=== PATIENT | male | born 1980 | race Hispanic/Latino ===

== ENCOUNTER 2020-09-05 21:01 | Emergency (ER) | payer SELFPAY ==
[2020-09-05 21:23] LABS: #Basophils 0.1 thou/uL (0.0-0.2); #Eosinphils 0.4 thou/uL (0.0-0.7); #Lymphocytes 3.3 thou/uL (1.20-3.40); #Monocytes 0.7 thou/uL (0.11-0.59); #Neutrophils 3.3 thou/uL (1.40-6.50); %Eosinophils 4.7 % (0.0-10.0); %Lymphocytes 42.6 % (21.0-51.0); %Monocytes 9.5 % (0.0-10.0); %Neutrophils 42.3 % (42.0-75.0); Hemoglobin 16.2 g/dL (14.0-18.0); Mean Corpuscular HGB CONC 35.4 g/dL (32.0-36.0); Mean Corpuscular Hemoglobin 31.5 pg (27.0-31.0); Mean Platelet Volume 7.2 fL (7.4-10.4); Platelet Count 305 thou/uL (130-400); RBC Distribution Width 12.9 % (11.5-14.5); Red Blood Cell (RBC) Count 5.14 mill/uL (4.70-6.10); White Blood Cell (WBC) Count 7.8 thou/uL (4.8-10.8)
[2020-09-05 21:30] LABS: INR-International Normal Ratio 0.9; PTT 28.1 sec (22.9-36.1); Prothrombin Time 12.2 sec (12.0-14.7)
--- NOTE | 2020-09-05 21:31 | CT ---
Head CT without contrast 09/05/2020: Comparison: None HISTORY: Right facial weakness, headaches TECHNIQUE: Axial CT imaging at 5 mm intervals from vertex through skull base without contrast FINDINGS: The imaged paranasal sinuses and mastoid air cells are well-aerated. No displaced calvarial fracture. No intracranial hemorrhage, midline shift, mass effect, or ventricular enlargement. IMPRESSION: No acute findings. Isma Bruce made aware via phone at 9:29 PM 09/05/2020
[2020-09-05 21:47] LABS: ALT (SGPT) 33 U/L (8-55); AST (SGOT) 24 U/L (5-34); Albumin 4.3 g/dL (3.5-5.0); Alkaline Phosphatase 61 U/L (40-110); Anion Gap 14 mmol/L (10-20); BUN (Urea Nitrogen) 11 mg/dL (8.9-20.6); Bilirubin, Total 0.2 mg/dL (0.2-1.2); CK (CPK) 177 U/L (30-200); Calc. Creatinine Clearance 0 mL/min (70-130); Calcium 9.4 mg/dL (7.8-10.44); Carbon Dioxide 26 mmol/L (22-29); Chloride 104 mmol/L (98-107); Estimated GFR-MDRD 82; Globulin 3.4 g/dL (2.4-3.5); Glucose 113 mg/dL (70-105); Protein, Total 7.7 g/dL (6.0-8.3); Sodium 140 mmol/L (136-145)
--- NOTE | 2020-09-05 21:47 | RAD ---
Portable frontal chest radiograph: 09/05/2020 COMPARISON: None HISTORY: Facial droop, headache FINDINGS: Lungs are clear. Heart and mediastinal contours appear within normal limits. IMPRESSION: No acute findings.
== END 2020-09-05 23:42 | disposition home or self-care (01) ==
LOC: ERS 21:01
DX: G51.0 Bell's palsy (principal); I10 Essential (primary) hypertension
CPT/HCPCS: 36415; 36416; 70450; 71045; 80053; 82550; 84484; 85025; 85610; 85730; 86850; 86900; 86901; 93005

== ENCOUNTER 2023-07-03 22:47 | Observation (INO) | payer SELFPAY ==
[2023-07-04] MEDS ORDERED: Tranexamic Acid 1,000 MG/10 ML VIAL ONE (00:17)
[2023-07-04 00:35] LABS: #Eosinphils 0.3 thou/uL (0.0-0.7); #Monocytes 0.8 thou/uL (0.11-0.59); #Neutrophils 4.9 thou/uL (1.40-6.50); %Basophils 0.4 % (0.0-1.0); %Eosinophils 3.4 % (0.0-10.0); %Lymphocytes 33.1 % (21.0-51.0); %Monocytes 9.1 % (0.0-10.0); %Neutrophils 53.7 % (42.0-75.0); Hematocrit 42.4 % (42.0-52.0); Hemoglobin 14.2 g/dL (14.0-18.0); Mean Corpuscular HGB CONC 33.5 g/dL (32.0-36.0); Mean Corpuscular Hemoglobin 29.2 pg (27.0-31.0); Mean Corpuscular Volume 87.2 fl (78.0-98.0); Mean Platelet Volume 9.1 fL (7.4-10.4); Platelet Count 299 10x3/uL (130-400); RBC Distribution Width 13.1 % (11.5-14.5); Red Blood Cell (RBC) Count 4.86 mill/uL (4.70-6.10); White Blood Cell (WBC) Count 9.1 10x3/uL (4.8-10.8)
[2023-07-04 00:49] LABS: PTT 28.9 sec (22.9-36.1); Prothrombin Time 13.2 sec (12.0-14.7)
[2023-07-04 01:37] LABS: ALT (SGPT) 38 U/L (8-55); AST (SGOT) 27 U/L (5-34); Albumin 4.2 g/dL (3.5-5.0); Alkaline Phosphatase 77 U/L (40-110); Anion Gap 13 mmol/L (10-20); BUN (Urea Nitrogen) 9 mg/dL (8.9-20.6); Bilirubin, Total 0.3 mg/dL (0.2-1.2); Calc. Creatinine Clearance 0 mL/min (70-130); Calcium 9.9 mg/dL (7.8-10.44); Carbon Dioxide 27 mmol/L (22-29); Chloride 105 mmol/L (98-107); Estimated GFR 104; Globulin 3.4 g/dL (2.4-3.5); Glucose 102 mg/dL (70-105); Potassium 3.5 mmol/L (3.5-5.1); Protein, Total 7.6 g/dL (6.0-8.3); Sodium 141 mmol/L (136-145)
[2023-07-04] MEDS ORDERED: Ondansetron PF 4 MG/2 ML Vial IVP PRN (04:52)
[2023-07-04] MEDS ORDERED: Acetaminophen 325 MG TAB PO PRN (04:52)
[2023-07-04] MEDS ORDERED: Ondansetron ODT 4 MG TAB PO PRN (04:52)
[2023-07-04] MEDS ORDERED: Acetaminophen 650 MG Suppository PR PRN (04:52)
[2023-07-04 05:35] LABS: #Monocytes 0.4 thou/uL (0.11-0.59); #Neutrophils 6.9 thou/uL (1.40-6.50); %Basophils 0.3 % (0.0-1.0); %Eosinophils 0.4 % (0.0-10.0); %Lymphocytes 19.8 % (21.0-51.0); %Neutrophils 75.3 % (42.0-75.0); Hematocrit 41.5 % (42.0-52.0); Mean Corpuscular HGB CONC 33.7 g/dL (32.0-36.0); Mean Corpuscular Hemoglobin 29.5 pg (27.0-31.0); Mean Corpuscular Volume 87.4 fl (78.0-98.0); Mean Platelet Volume 9.1 fL (7.4-10.4); Platelet Count 292 10x3/uL (130-400); RBC Distribution Width 13.1 % (11.5-14.5); Red Blood Cell (RBC) Count 4.75 mill/uL (4.70-6.10); White Blood Cell (WBC) Count 9.2 10x3/uL (4.8-10.8)
[2023-07-04 14:52] LABS: Platelet Count 288 thou/uL (130-400)
[2023-07-04 15:15] LABS: EPI 168 sec (67-192)
[2023-07-04 16:02] VITALS: BP 136/97; TEMP 98.1
== END 2023-07-04 16:11 | disposition home or self-care (01) ==
LOC: ERS 22:47 → ERHOLD 07-04 04:48
PROVIDERS: ADMIT Student in an Organized Health Care Education/Training Program; ATTEND Family Medicine
DX: K06.8 Other specified disorders of gingiva and edentulous alveolar ridge (principal); Z79.899 Other long term (current) drug therapy; Z98.890 Other specified postprocedural states
CPT/HCPCS: 36415; 80053; 85025; 85245; 85246; 85247; 85576; 85610; 85730; 99284